=== PATIENT | female | born 1960 | race African-American/Black ===

== ENCOUNTER → 2017-10-29 | Day surgery (SDC) | payer BC ==
[2017-10-27 16:18] LABS: BASOPHILS % 0.2 % (0.0-1.0); EOSINOPHILS # (AUTO) 0.2 (0.0-0.4); EOSINOPHILS % 4.4 % (0.0-6.0); HEMOGLOBIN 12.6 g/dL (12.0-16.0); LYMPHOCYTES % 36.1 % (18.0-39.1); MEAN CORPUSCULAR HEMOGLOBIN 29.2 pg (28-32); MEAN CORPUSCULAR HGB CONC 34.1 g/dL (31-35); MEAN CORPUSCULAR VOLUME 85.8 fL (81-99); MONOCYTES # (AUTO) 0.4 (0.2-0.8); MONOCYTES % 6.9 % (4.4-11.3); NEUTROPHILS # (AUTO) 2.9 (2.1-6.9); NEUTROPHILS % 51.9 % (38.7-80.0); PLATELET COUNT 201 x10e3/uL (140-360); RED BLOOD COUNT 4.31 x10e6/uL (3.6-5.1); RED CELL DISTRIBUTION WIDTH 14.2 % (11.7-14.4)
[2017-10-27 16:26] LABS: INR 1.1; PROTHROMBIN TIME 13.4 seconds (11.9-14.5)
[2017-10-27 16:27] LABS: PARTIAL THROMBOPLASTIN TIME 37.7 seconds (23.8-35.5)
[2017-10-27 16:33] LABS: ALANINE AMINOTRANSFERASE 18 IU/L (0-55); ALBUMIN 3.8 g/dL (3.5-5.0); ALBUMIN/GLOBULIN RATIO 0.9 (0.8-2.0); ALKALINE PHOSPHATASE 69 IU/L (40-150); ANION GAP 14.2 mmol/L (8-16); BLOOD UREA NITROGEN 14 mg/dL (7-26); BUN/CREATININE RATIO 15 (6-25); CALCIUM 10.1 mg/dL (8.4-10.2); CARBON DIOXIDE 31 mmol/L (22-29); CHLORIDE 100 mmol/L (98-107); CREATININE, SERUM 0.96 mg/dL (0.57-1.11); EST GLOMERULAR FILTRATION RATE > 60 ML/MIN (60-); GLUCOSE 167 mg/dL (74-118); POTASSIUM 3.2 mmol/L (3.5-5.1); SODIUM 142 mmol/L (136-145)
[~2017-10-29] MED LIST: ALLOPURINOL100 MG PO; ATENOLOL25 MG PO; ATENOLOL50 MG; BACITRACIN 50,000 UNIT VIAL ONE; CLINDAMYCIN 600MG/D5W 50ML 50 ML IV ONE; FENTANYL CITRATE/PF 100MCG/2 ML INJ ONE; KETAMINE HCL INJ 50 MG/ML 10 ML VIAL ONE; LIDOCAINE HCL 2% LOCAL INJ 5 ML SDV VIAL INJ ONE; LISINOPRIL PO; LISINOPRIL2.5 MG PO; METFORMIN HCL500 MG PO; MIDAZOLAM HCL 2 MG/2 ML VIAL ONE; ONDANSETRON HCL INJ 2 MG/ML VIAL ONE; PROPOFOL IV EMULSION 10 MG/ML 20 ML VIAL ONE; ROCURONIUM BROMIDE 10 MG/ML 5ML VIAL ONE; SEVOFLURANE INHAL SOLN 250 ML PEN BTL ONE; ULORIC PO
[2017-10-29 10:23] LABS: ANION GAP 17.3 mmol/L (8-16); BLOOD UREA NITROGEN 15 mg/dL (7-26); BUN/CREATININE RATIO 17 (6-25); CALCIUM 9.8 mg/dL (8.4-10.2); CARBON DIOXIDE 27 mmol/L (22-29); CHLORIDE 101 mmol/L (98-107); CREATININE, SERUM 0.87 mg/dL (0.57-1.11); EST GLOMERULAR FILTRATION RATE > 60 ML/MIN (60-); GLUCOSE 137 mg/dL (74-118); POTASSIUM 3.3 mmol/L (3.5-5.1); SODIUM 142 mmol/L (136-145)
--- NOTE | 2017-11-08 12:11 | Operative Report ---
DATE OF PROCEDURE: October 29, 2017 PREOPERATIVE DIAGNOSES 1. History of breast cancer. 2. Acquired absence of bilateral breasts. 3. Exposed tissue route sales specialist on right breast. POSTOPERATIVE DIAGNOSES 1. History of breast cancer. 2. Acquired absence of bilateral breasts. 3. Exposed tissue route sales specialist on right breast. PROCEDURES PERFORMED 1. Exchange of bilateral tissue expanders with permanent silicone gel breast implants, [place] mammary gel smooth, round and ultra high profile, 700 mL. SN number on the right is [id number], and SN number of the left is [id number]. 2. Bilateral capsulotomies. 3. Revision of bilateral breast reconstruction. ANESTHESIA: General endotracheal. INDICATIONS FOR SURGERY: This is a 57-year-old female who a couple of years ago was diagnosed with breast cancer, and underwent bilateral breast mastectomies. The patient underwent last year bilateral breast reconstruction with tissue expanders and AlloDerm. The patient is currently presenting for exchange of bilateral tissue expanders with permanent silicone gel breast implants, bilateral capsulotomies, and revision of bilateral breast reconstruction. She has also presented today with exposed right breast tissue route sales specialist within the last few days. Risks, alternatives and possible complications of the above procedure were explained to the patient. These include, but are not limited to bleeding, infection, scarring, skin flap necrosis, capsule contracture, breast asymmetry, exposure, failure of silicone gel implants, wound dehiscence, unsatisfactory aesthetic result, and possible need for further surgery. The patient had an opportunity to ask questions, and have her questions answered and agreed to proceed with the proposed procedure. PROCEDURE IN DETAIL: The patient was marked in the preoperative holding area. She was then taken to the operating room and placed supine on the operating table. After adequate general anesthesia, the patient's bilateral breasts were prepped and draped in the usual surgical fashion. Attention was then turned first to the patient's right breast, which had the exposed tissue route sales specialist. The skin around the exposed tissue route sales specialist was excised and sent to pathology for permanent. The tissue route sales specialist was then deflated and removed. Culture was taken from the breast pocket and sent for aerobic and anaerobic culture. There did not appear to be infection. The breast pocket was then irrigated with pulse lavage with 3 L of normal saline with antibiotic solution to prevent any infection. It was also irrigated with Betadine. After irrigation of the breast pocket, thick capsule was noted into the right breast pocket. Extensive capsulotomy was performed medially and then superiorly, and a portion of the breast capsule was also removed with the help of the Bovie, Jordyn and Ricardo retractor, as well as headlight. The pocket was again irrigated with normal saline with antibiotic solution and checked for hemostasis. A sizer was then tried, and it appeared that the maximum implant that can be fit in the breast pocket is 700 mL. Revision of breast reconstruction was then performed by placing lateral capsulorrhaphy sutures, and the tissue route sales specialist had been displaced laterally. The capsulorrhaphy sutures were placed with interrupted 0 Ethibond suture. The breast pocket was again irrigated with normal saline with antibiotic solution. A ultra high profile [place] silicone gel implant, 700 mL, was placed in the breast pocket. The mastectomy incision was then closed with 2 layers of interrupted 3-0 Vicryl sutures and a running subcuticular 3-0 PDS suture. The instruments and the gloves were then changed. Attention was turned to the patient's left breast. An incision was made along the previous mastectomy incision with a #15 blade. Tissue was dissected down to breast capsule. The tissue route sales specialist was deflated and removed. The breast pocket was irrigated with normal saline with antibiotic solution. Extensive medial and superior capsulotomy was performed with the help of the Bovie, [place] and Ricardo retractors. Revision of breast reconstruction was performed by placing lateral capsulorrhaphy sutures with interrupted 0 Ethibond sutures. The pocket was then irrigated with normal saline with antibiotic solution, and checked for hemostasis. A 700 mL [place] mammary shaped ultra high profile silicone gel implant was placed in the breast pocket. The breast pocket was then closed with 2 layers of interrupted 3-0 Vicryl sutures and a running subcuticular 3-0 PDS suture. At the end of the case, all skin flaps appeared viable. Both breasts appeared to be symmetric. The incisions were covered with Xeroform, ABD pads, and the patient was wrapped in a large 6-inch Ludin wrap. She tolerated the procedure well. There were no immediate complications. The needle and instrument counts were correct at the end of the case. The excised capsule on the right side was sent to pathology for permanent. The patient was transferred extubated to the recovery room. Job#: [id number]
== END | disposition home or self-care (01) ==
LOC: OR 09:05
PROVIDERS: ATTEND Plastic Surgery
DX: T85.898A Other specified complication of other internal prosthetic devices, implants and grafts, initial encounter (principal); T81.89XA Other complications of procedures, not elsewhere classified, initial encounter; Z85.3 Personal history of malignant neoplasm of breast; Z90.13 Acquired absence of bilateral breasts and nipples; G47.33 Obstructive sleep apnea (adult) (pediatric); I10 Essential (primary) hypertension; E11.9 Type 2 diabetes mellitus without complications; M10.9 Gout, unspecified; L40.9 Psoriasis, unspecified; Z88.0 Allergy status to penicillin; Y83.4 Other reconstructive surgery as the cause of abnormal reaction of the patient, or of later complication, without mention of misadventure at the time of the procedure; Z01.810 Encounter for preprocedural cardiovascular examination; Z01.812 Encounter for preprocedural laboratory examination; Z79.84 Long term (current) use of oral hypoglycemic drugs
CPT/HCPCS: 19342; 36415 ×2; 80048; 80053; 82948; 85025; 85610; 85730; 87071; 87075; 87186; 87205; 88304; 88305; 93005; C1789; J2001; J2250; J2405

== ENCOUNTER → 2017-12-31 | Day surgery (SDC) | payer BC ==
[2017-12-29 16:43] LABS: BASOPHILS % 0.4 % (0.0-1.0); EOSINOPHILS # (AUTO) 0.1 (0.0-0.4); EOSINOPHILS % 2.5 % (0.0-6.0); HEMATOCRIT 36.1 % (34.2-44.1); HEMOGLOBIN 12.2 g/dL (12.0-16.0); LYMPHOCYTES % 38.9 % (18.0-39.1); MEAN CORPUSCULAR HEMOGLOBIN 29.2 pg (28-32); MEAN CORPUSCULAR HGB CONC 33.8 g/dL (31-35); MEAN CORPUSCULAR VOLUME 86.4 fL (81-99); MONOCYTES # (AUTO) 0.4 (0.2-0.8); MONOCYTES % 7.4 % (4.4-11.3); NEUTROPHILS # (AUTO) 2.6 (2.1-6.9); NEUTROPHILS % 50.4 % (38.7-80.0); PLATELET COUNT 192 x10e3/uL (140-360); RED BLOOD COUNT 4.18 x10e6/uL (3.6-5.1); RED CELL DISTRIBUTION WIDTH 14.5 % (11.7-14.4)
[2017-12-29 16:54] LABS: INR 0.9
[2017-12-29 16:55] LABS: PARTIAL THROMBOPLASTIN TIME 37.4 seconds (23.8-35.5)
[2017-12-29 17:06] LABS: ALANINE AMINOTRANSFERASE 37 IU/L (0-55); ALBUMIN 4.1 g/dL (3.5-5.0); ALBUMIN/GLOBULIN RATIO 1.1 (0.8-2.0); ALKALINE PHOSPHATASE 63 IU/L (40-150); ANION GAP 15.8 mmol/L (8-16); BLOOD UREA NITROGEN 15 mg/dL (7-26); BUN/CREATININE RATIO 16 (6-25); CALCIUM 9.9 mg/dL (8.4-10.2); CARBON DIOXIDE 29 mmol/L (22-29); CHLORIDE 101 mmol/L (98-107); CREATININE, SERUM 0.91 mg/dL (0.57-1.11); EST GLOMERULAR FILTRATION RATE > 60 ML/MIN (60-); GLUCOSE 166 mg/dL (74-118); SODIUM 143 mmol/L (136-145)
[2017-12-29 17:07] LABS: POTASSIUM 2.8 mmol/L (3.5-5.1)
[~2017-12-31] MED LIST changes: +ACETAMINOPHEN 1000 MG/100 ML 100 ML IV ONE; +ACETAMINOPHEN/CODEINE 300MG - 30MG TAB ONE; -BACITRACIN 50,000 UNIT VIAL ONE; +BUPIVACAINE 0.25% 30ML SDV INJ ONE; +CLINDAMYCIN 600MG / 50ML 50 ML IV ONE; -CLINDAMYCIN 600MG/D5W 50ML 50 ML IV ONE; +DEXAMETHASONE SOD PHOS INJ 4 MG/ML VIAL ONE; +EPHEDRINE SULFATE INJ 50 MG/10 ML SYR ONE; +EPINEPHRINE HCL INJ 1 MG/ML AMP ONE; -KETAMINE HCL INJ 50 MG/ML 10 ML VIAL ONE; +LIDOCAINE HCL 1% 30ML-PF VIAL ONE; +POTASSIUM CHLO10 ME1 PO
[2017-12-31 19:10] VITALS: BP 133/81
--- OUTSIDE RECORDS SUMMARY | 2018-01-12 10:35 | XMS REPORT | Continuity of Care Document ---
Author Author [facility] Interface Address Unknown Phone Unavailable Problems Problem Status Onset Date Classification Date Reported Comments Source R10.2 Active 09/04/2016 [facility] UNK Active 03/26/2016 [facility] POST SURGICAL Active 03/26/2016 [facility] CALCIFICATIONS Active 02/06/2016 [facility] DUCTAL CARCINOMA IN SITU Active 01/29/2016 [facility] DX: ABNORMAL MAMMOGRAM Active 01/28/2016 [facility] Z12.39 ENCOUNTER FOR OTHER SCREENING FOR Active 01/02/2016 [facility] Gouty arthritis of the ankle and/or foot<sup>3</sup> Active 10/17/2014 Problem 09/29/2017 Data migrated from [employer] on 11/01/14. [facility] BREAST MASS Active 07/14/2014 [facility] Breast lump<sup>1</sup> Active 07/13/2014 Problem 09/29/2017 Data migrated from [employer] on 10/04/14. [facility] History and physical examination, annual for health maintenance<sup>4</sup> Active 07/13/2014 Problem 09/29/2017 Data migrated from [employer] on 10/04/14. [facility] Screening for malignant neoplasm of colon<sup>11, 12</sup> Active 07/13/2014 Problem 09/29/2017 Data migrated from [employer] on 10/04/14. [facility] Screening for malignant neoplasm of colon<sup>10, 11</sup> Active 07/13/2014 Problem 03/01/2016 Data migrated from [employer] on 10/04/14. [facility] Hypercholesterolemia<sup>5</sup> Active 04/10/2014 Problem 09/29/2017 Data migrated from [employer] on 11/06/14. [facility] Type 2 diabetes mellitus<sup>14</sup> Active 04/10/2014 Problem 09/29/2017 Data migrated from [employer] on 11/06/14. [facility] Vitamin D deficiency<sup>15</sup> Active 04/10/2014 Problem 09/29/2017 Data migrated from [employer] on 11/06/14. [facility] Type 2 diabetes mellitus<sup>13</sup> Active 04/10/2014 Problem 03/01/2016 Data migrated from [employer] on 11/06/14. [facility] Vitamin D deficiency<sup>14</sup> Active 04/10/2014 Problem 03/01/2016 Data migrated from [employer] on 11/06/14. [facility] Edema of foot<sup>2</sup> Active 04/07/2014 Problem 09/29/2017 Data migrated from [employer] on 11/06/14. [facility] Obesity<sup>8, 9</sup> Active 04/07/2014 Problem 09/29/2017 Data migrated from [employer] on 10/04/14. [facility] Obstructive sleep apnea syndrome<sup>10</sup> Active 04/07/2014 Problem 09/29/2017 Data migrated from [employer] on 11/06/14. [facility] Systolic murmur<sup>13</sup> Active 04/07/2014 Problem 09/29/2017 Data migrated from [employer] on 11/06/14. [facility] Obesity<sup>7, 8</sup> Active 04/07/2014 Problem 03/01/2016 Data migrated from [employer] on 10/04/14. [facility] Obstructive sleep apnea syndrome<sup>9</sup> Active 04/07/2014 Problem 03/01/2016 Data migrated from [employer] on 11/06/14. [facility] Systolic murmur<sup>12</sup> Active 04/07/2014 Problem 03/01/2016 Data migrated from [employer] on 11/06/14. [facility] Morbid obesity<sup>7</sup> Active 09/06/2013 Problem 09/29/2017 Data migrated from [employer] on 11/06/14. [facility] Morbid obesity<sup>6</sup> Active 09/06/2013 Problem 03/01/2016 Data migrated from [employer] on 11/06/14. [facility] Diabetes Active Problem 09/29/2017 Medical Group,[facility] Dyspnea Resolved Problem 09/29/2017 [facility] Edema Resolved Problem 09/29/2017 [facility] Gout Active Problem 09/29/2017 [facility] HLD - Hyperlipidemia Active Problem 09/29/2017 Medical [facility] HTN (<span ID="[id number]">Confirmed</span>) Active Problem 09/29/2017 [facility] Hypokalemia Resolved Problem 09/29/2017 [facility] Breast cancer<sup>6</sup> Active Problem 09/29/2017 left Medical [facility] Apnea, sleep Active Problem 09/29/2017 [facility] Medications Medication Details Route Status Patient Instructions Ordering Provider Order Date Source allopurinol 100 mg oral tablet 100 mg=1 tab, PO, Daily, # 90 tab, 0 Refill(s), Pharmacy: [facility] Active 08/26/2017 Medical Group potassium chloride 20 mEq oral tablet, extended release 20 mEq=1 tab, PO, BID, # 6 tab, 0 Refill(s), Pharmacy: [facility] Active 08/26/2017 Medical [facility] Triamcinolone Acetonide 1 MG/ML Topical Cream 1 appl, TOP, TID, PRN Apply to affected area(s), apply for 2-4 wks, # 454 gm, 0 Refill(s), Pharmacy: [facility] Active 08/25/2017 Medical [facility] Rosuvastatin calcium 10 MG Oral Tablet [Crestor] 20 mg=2 tab, PO, Bedtime, # 90 tab, 1 Refill(s), Pharmacy: [facility] Active 08/25/2017 Medical Group Metformin hydrochloride 500 MG Oral Tablet 1,000 mg=2 tab, PO, BID, # 180 tab, 1 Refill(s), Pharmacy: [facility] Active 08/25/2017 [facility] lisinopril 5 mg oral tablet 5 mg=1 tab, PO, Daily, # 90 tab, 1 Refill(s), Pharmacy: [facility] Active 08/25/2017 Medical Group Atenolol 100 MG / Chlorthalidone 25 MG Oral Tablet 1 tab, PO, Daily, # 90 tab, 1 Refill(s), Pharmacy: [facility] Active 08/25/2017 [facility] Metformin hydrochloride 500 MG Oral Tablet 500 mg=1 tab, PO, BID-Meals, # 60 tab, 1 Refill(s), Pharmacy: [facility] No Longer Active 06/22/2017 [facility] Metformin hydrochloride 500 MG Oral Tablet 500 mg=1 tab, PO, BID, # 60 tab, 2 Refill(s), Pharmacy: [facility] Active 02/25/2017 [facility] Diclofenac Sodium 0.01 MG/MG Topical Gel [Voltaren] 2 gm=1 appl, TOP, QID, PRN for pain, # 100 gm, 0 Refill(s), Pharmacy: [facility] Active 02/10/2017 [facility] ciclopirox 80 MG/ML Topical Solution 1 appl, TOP, Daily, X 48 week, # 9.9 ml, 11 Refill(s), Pharmacy: [facility] Active 02/10/2017 [facility] lisinopril 5 mg oral tablet 5 mg=1 tab, PO, Daily, # 90 tab, 1 Refill(s), Pharmacy: [facility] Active 02/10/2017 [facility] febuxostat 40 MG Oral Tablet [Uloric] 40 mg=1 tab, PO, Daily, # 90 tab, 1 Refill(s), Pharmacy: [facility] Active 02/10/2017 [facility] Colchicine 0.6 MG Oral Tablet See Instructions, take 2 tablet at the first sign of a gout flare followed by 1 tab one hour later if still hurting. max 3 tab a day, # 30 tab, 2 Refill(s), Pharmacy: [facility] Active 02/10/2017 [facility] Atenolol 100 MG / Chlorthalidone 25 MG Oral Tablet 1 tab, PO, Daily, # 90 tab, 1 Refill(s), Pharmacy: [facility] Active 02/10/2017 [facility] heparin 7,500 unit, 1.5 mL, Route: SUB-Q, Drug form: INJ, Q8H, Dosing Weight 128.591, kg, Consider for obese patients, Start date: 04/21/16 23:00:00 [employer], Duration: 30 day, Stop date: 05/21/16 15:00:00 CSTNotes: porcine heparin No Longer Active 04/22/2016 [facility] Docusate Sodium 100 MG Oral Capsule 100 mg, 1 cap, Route: PO, Drug form: CAP, BID, Dosing Weight 128.591, kg, Start date: 04/21/16 17:00:00 [employer], Duration: 30 day, Stop date: 05/21/16 9:00:00 CSTNotes: (Same as: Colace) (Do Not Crush) No Longer Active 04/21/2016 [facility] ceFAZolin (SCIP) 2 gm, 100 mL, Route: IVPB, Drug form: INJ, ABXQ8H, Dosing Weight 128.591, kg, Start date: 04/21/16 17:00:00 [employer], Duration: 3 doses or times, Stop date: 04/22/16 9:00:00 CSTNotes: Same as: Ancef No Longer Active 04/21/2016 [facility] Ketorolac 15 mg, 1 mL, Route: IVP, Drug form: INJ, Q6H, Dosing Weight 128.591, kg, Start date: 04/21/16 12:00:00 [employer], Duration: 6 doses or times, Stop date: 04/22/16 18:00:00 CSTNotes: (Same as:Toradol) IV bolus must be given >15 seconds. Give IM administration slowly and deeply into the muscle. Not for use > 4 days. No Longer Active 04/21/2016 [facility] Ondansetron 4 mg, 2 mL, Route: IVP, Drug form: INJ, Q6H, Dosing Weight 128.591, kg, PRN Nausea & Vomiting, Start date: 04/21/16 11:22:00 [employer], Duration: 30 day, Stop date: 05/21/16 11:21:00 CSTNotes: (Same as: Zofran) MEDICATION WASTE Product Size: 4 mg Product Wasted: ___ mg No Longer Active 04/21/2016 [facility] Acetaminophen 650 mg, 2 tab, Route: PO, Drug form: TAB, Q4H, Dosing Weight 128.591, kg, PRN Pain 1-3/Temp > 100.4 F, Start date: 04/21/16 11:22:00 [employer], Duration: 30 day, Stop date: 05/21/16 11:21:00 CSTNotes: Do not exceed 4 gm/day. (Same as: Tylenol) No Longer Active 04/21/2016 [facility] Hydromorphone 0.3 mg, 0.3 mL, Route: IVP, Drug form: INJ, Q3H, Dosing Weight 128.591, kg, PRN Pain Score 4-6, Start date: 04/21/16 11:22:00 [employer], Duration: 30 day, Stop date: 05/21/16 11:21:00 [employer] No Longer Active 04/21/2016 [facility] Calcium Chloride 0.0014 MEQ/ML / Potassium Chloride 0.004 MEQ/ML / Sodium Chloride 0.103 MEQ/ML / Sodium Lactate 0.028 MEQ/ML Injectable Solution 1,000 mL, Rate: 125 ml/hr, Infuse over: 8 hr, Route: IV, Dosing Weight 128.591 kg, Total Volume: 1,000, Start date: 04/21/16 11:22:00 [employer], Duration: 30 day, Stop date: 05/21/16 11:21:00 [employer] No Longer Active 04/21/2016 [facility] ceFAZolin (ANES) Route: IV, Drug form: INJ, ONCE, Stop date: 04/21/16 11:13:00 [employer] Inactive 04/21/2016 [facility] Diphenhydramine 12.5 mg, Route: IVP, Drug form: INJ, Q6H, Dosing Weight 128.591, kg, PRN Itching, Start date: 04/21/16 11:13:00 [employer], Duration: 30 day, Stop date: 05/21/16 11:12:00 [employer] Inactive 04/21/2016 [facility] Naloxone 0.4 mg, Route: IVP, Q2MIN, Dosing Weight 128.591, kg, PRN Narcotic Reversal, Start date: 04/21/16 11:13:00 [employer], Duration: 8 doses or times, Stop date: Limited # of times Inactive 04/21/2016 [facility] Meperidine 12.5 mg, Route: IVP, Q30Min, Dosing Weight 128.591, kg, PRN Other -See Comment, For shivering, Start date: 04/21/16 11:13:00 [employer], Duration: 2 doses or times, Stop date: Limited # of times Inactive 04/21/2016 [facility] Oxycodone 10 mg, Route: PO, Drug form: TAB, Q4H, Dosing Weight 128.591, kg, PRN Pain Score 7-10, Start date: 04/21/16 11:13:00 [employer], Duration: 30 day, Stop date: 05/21/16 11:12:00 [employer] Inactive 04/21/2016 [facility] Hydromorphone 0.5 mg, Route: IVP, Q5Min, Dosing Weight 128.591, kg, PRN Pain Score 7-10, Start date: 04/21/16 11:13:00 [employer], Duration: 4 doses or times, Stop date: Limited # of times Inactive 04/21/2016 [facility] Fentanyl 25 microgram, Route: IVP, Q5Min, Dosing Weight 128.591, kg, PRN Pain Score 4-6, Priority: Routine, Start date: 04/21/16 11:13:00 [employer], Duration: 4 doses or times, Stop date: Limited # of times Inactive 04/21/2016 [facility] Flumazenil 0.2 mg, Route: IVP, PRN, Dosing Weight 128.591, kg, PRN Benzodiazepine Reversal, Initial dose, Start date: 04/21/16 11:13:00 [employer], Duration: 30 day, Stop date: 05/21/16 11:12:00 [employer] Inactive 04/21/2016 [facility] Morphine 4 mg, Route: IVP, Q5Min, Dosing Weight 128.591, kg, PRN Pain Score 7-10, Start date: 04/21/16 11:13:00 [employer], Duration: 3 doses or times, Stop date: Limited # of times Inactive 04/21/2016 [facility] 72 HR Scopolamine 0.0139 MG/HR Transdermal Patch 1 patch, Route: TOP, Drug Form: ERFILM, Dosing Weight 128.591, kg, ONCE, Apply behind ear. Avoid use in elderly., Start date: 04/21/16 11:13:00 [employer], Stop date: 04/21/16 11:13:00 [employer] Inactive 04/21/2016 [facility] Promethazine 6.25 mg, Route: IVPB, ONCE, Dosing Weight 128.591, kg, PRN Nausea & Vomiting, Start date: 04/21/16 11:13:00 [employer] Inactive 04/21/2016 [facility] Ondansetron 4 mg, Route: IVP, ONCE, Dosing Weight 128.591, kg, PRN Nausea & Vomiting, Start date: 04/21/16 11:13:00 [employer] Inactive 04/21/2016 [facility] Acetaminophen 1,000 mg, Route: IVPB, Drug form: INJ, ONCE, Dosing Weight 128.591, kg, PRN Pain Score 1-3, Start date: 04/21/16 11:13:00 [employer], Duration: 1 doses or times, Stop date: Limited # of times Inactive 04/21/2016 [facility] Ketorolac 30 mg, Route: IVP, ONCE, Dosing Weight 128.591, kg, Start date: 04/21/16 11:13:00 [employer], Duration: 1 doses or times, Stop date: 04/21/16 11:13:00 [employer] Inactive 04/21/2016 [facility] Calcium Chloride 0.0014 MEQ/ML / Potassium Chloride 0.004 MEQ/ML / Sodium Chloride 0.103 MEQ/ML / Sodium Lactate 0.028 MEQ/ML Injectable Solution 1,000 mL, Rate: 125 ml/hr, Infuse over: 8 hr, Route: IV, Dosing Weight 128.591 kg, Total Volume: 1,000, Start date: 04/21/16 11:13:00 [employer], Duration: 30 day, Stop date: 05/21/16 11:12:00 [employer] Inactive 04/21/2016 [facility] glycopyrrolate (ANES) Route: IV, Drug form: INJ, ONCE, Stop date: 04/21/16 11:13:00 [employer] Inactive 04/21/2016 [facility] neostigmine (ANES) Route: IV, Drug form: INJ, ONCE, Stop date: 04/21/16 11:13:00 [employer] Inactive 04/21/2016 [facility] ketOROLAC (ANES) IV, ONCE Inactive 04/21/2016 [facility] metoclopramide (ANES) Route: IV, Drug form: INJ, ONCE, Stop date: 04/21/16 10:20:00 [employer] Inactive 04/21/2016 [facility] famotidine (ANES) Route: IV, Drug form: INJ, ONCE, Stop date: 04/21/16 10:20:00 [employer] Inactive 04/21/2016 [facility] acetaminophen (ANES) Route: IV, Drug form: INJ, ONCE, Stop date: 04/21/16 10:11:00 [employer] Inactive 04/21/2016 [facility] ondansetron (ANES) Route: IV, Drug form: INJ, ONCE, Stop date: 04/21/16 10:10:00 [employer] Inactive 04/21/2016 [facility] rocuronium (ANES) Route: IV, Drug form: INJ, ONCE, Stop date: 04/21/16 9:56:00 [employer] Inactive 04/21/2016 [facility] propofol (ANES) Route: IV, Drug form: INJ, ONCE, Stop date: 04/21/16 9:56:00 [employer] Inactive 04/21/2016 [facility] fentaNYL (ANES) Route: IV, Drug form: INJ, ONCE, Stop date: 04/21/16 9:56:00 [employer] Inactive 04/21/2016 [facility] midazolam (ANES) Route: IV, Drug form: SOLN, ONCE, Stop date: 04/21/16 9:55:00 [employer] Inactive 04/21/2016 [facility] lidocaine (ANES) Route: IV, Drug form: INJ, ONCE, Stop date: 04/21/16 9:55:00 [employer] Inactive 04/21/2016 [facility] LR 1000 mL INJ (ANES) Route: IV, Total Volume: 1,000, Start date: 04/21/16 8:45:00 [employer], Stop date: 04/21/16 9:45:00 [employer] Inactive 04/21/2016 [facility] Exparel 20 mL, Route: InFILtration(local), Drug Form: INJ, Dosing Weight 128.591, kg, ONCE, For total mastectomy, Start date: 04/21/16 8:19:00 [employer], Stop date: 04/21/16 8:19:00 CSTNotes: (Same as: Exparel) NOT FOR IV use Postoperative analgesia: Infiltration (local): Dose is based on surgical site and volume required to cover the area (in general, the maximum total dose is 266 mg). Bunionectomy: 7 mL into the tissues surrounding the osteotomy and 1 mL into the subcutaneous tissue of the surgical site (total dose=8 mL [106 mg]) Hemorrhoidectomy: 30 mL (20 mL vial diluted with 10 mL NS) divided and administered as 6 injections of 5 mL each (total dose=30 mL [266 mg]) Inactive 04/21/2016 [facility] Insulin regular 3 unit, Route: IV, ONCE, Dosing Weight 128.591, kg, Start date: 04/21/16 7:22:00 [employer], Stop date: 04/21/16 7:22:00 [employer] Inactive 04/21/2016 [facility] Calcium Chloride 0.0014 MEQ/ML / Potassium Chloride 0.004 MEQ/ML / Sodium Chloride 0.103 MEQ/ML / Sodium Lactate 0.028 MEQ/ML Injectable Solution 1,000 mL, Rate: 25 ml/hr, Infuse over: 40 hr, Route: IV, Dosing Weight 128.591 kg, Total Volume: 1,000, Start date: 04/21/16 7:21:00 [employer], Duration: 30 day, Stop date: 05/21/16 7:20:00 [employer] Inactive 04/21/2016 [facility] Metformin hydrochloride 500 MG Oral Tablet 500 mg=1 tab, PO, BID-Meals, # 30 tab, 0 Refill(s) Active 04/15/2016 [facility] Cefazolin 2 gm, Route: IVPB, ONCE, Dosing Weight 132.273, kg, Start date: 04/15/16 17:02:00 [employer], Stop date: 04/15/16 17:02:00 [employer] No Longer Active 04/15/2016 [facility] Allergies, Adverse Reactions, Alerts Substance Category Reaction Severity Reaction type Status Date Reported Comments Source penicillins Assertion Drug allergy Active Medical Group Immunizations Immunization Date Given Site Status Last Updated Comments Source Results Order Name Results Value Reference Range Date Interpretation Comments Source CHEM PANEL Uric Acid 5.3 mg/dL 2.5 - 7.0 02/11/2017 Result Comment: Therapeutic target for gout patients: <6.0 mg/dL Lab test performed by: [email or web address] Lab [address] [place] [address] Sandy Farias MD Medical Group CHEM PANEL ALANINE AMINOTRANSFERASE 18 unit/L 6 - 29 02/11/2017 [facility] CHEM PANEL Alk Phos 66 unit/L 33 - 130 02/11/2017 [facility] CHEM PANEL ASPARTATE TRANSAMINASE 17 unit/L 10 - 35 02/11/2017 [facility] CHEM PANEL Bili Total 0.3 mg/dL 0.2 - 1.2 02/11/2017 [facility] CHEM PANEL A/G Ratio 1.4 (CALC) 1.0 - 2.5 02/11/2017 [facility] CHEM PANEL Globulin 2.9 g/dL 1.9 - 3.7 02/11/2017 [facility] CHEM PANEL Sodium Lvl 143 mMol/L 135 - 146 02/11/2017 [facility] CHEM PANEL B/C Ratio NOT APPLICABLE 6 - 22 02/11/2017 [facility] CHEM PANEL eGFR 98 mL/min/1.73m2 > OR=60 mL/min/1.73m2 02/11/2017 [facility] CHEM PANEL eGFR NON-AFR. [place] 85 mL/min/1.73m2 > OR=60 mL/min/1.73m2 02/11/2017 [facility] CHEM PANEL Chloride Lvl 101 mMol/L 98 - 110 02/11/2017 [facility] CHEM PANEL Potassium Lvl 3.8 mMol/L 3.5 - 5.3 02/11/2017 [facility] CHEM PANEL Calcium Lvl 9.4 mg/dL 8.6 - 10.4 02/11/2017 [facility] CHEM PANEL CO2 34 mMol/L 20 - 31 02/11/2017 [facility] CHEM PANEL Albumin Lvl 4.1 g/dL 3.6 - 5.1 02/11/2017 [facility] CHEM PANEL Total Protein 7.0 g/dL 6.1 - 8.1 02/11/2017 [facility] CHEM PANEL BUN 16 mg/dL 7 - 25 02/11/2017 [facility] CHEM PANEL Glucose Lvl 114 mg/dL 65 - 99 02/11/2017 Result Comment: Fasting reference interval For someone without known diabetes, a glucose value between 100 and 125 mg/dL is consistent with prediabetes and should be confirmed with a follow-up test. Lab test performed by: [email or web address] [[email or web address] Lab [address] [place] [address] Sandy Farias MD [facility] CHEM PANEL Creatinine Lvl 0.78 mg/dL 0.50 - 1.05 02/11/2017 Result Comment: For patients >49 years of age, the reference limit for Creatinine is approximately 13% higher for people identified as -[place]. [facility] HEMATOLOGY Monocytes 6.6 % 02/11/2017 [facility] HEMATOLOGY Basophils 0.3 % 02/11/2017 [facility] HEMATOLOGY Eosinophils 6.1 % 02/11/2017 [facility] HEMATOLOGY Eosinophils # 354 Cells/uL 15 - 500 02/11/2017 [facility] HEMATOLOGY Segs 56.3 % 02/11/2017 [facility] HEMATOLOGY Lymphocytes 30.7 % 02/11/2017 [facility] HEMATOLOGY Basophils # 17 Cells/uL 0 - 200 02/11/2017 [facility] HEMATOLOGY Monocytes # 383 Cells/uL 200 - 950 02/11/2017 [facility] HEMATOLOGY Lymphocytes # 1781 Cells/uL 850 - 3900 02/11/2017 [facility] HEMATOLOGY Hgb A1C 6.6 % <5.7 % 02/11/2017 Result Comment: For someone without known diabetes, a hemoglobin A1c value of 6.5% or greater indicates that they may have diabetes and this should be confirmed with a follow-up test. For someone with known diabetes, a value <7% indicates that their diabetes is well controlled and a value greater than or equal to 7% indicates suboptimal control. A1c targets should be individualized based on duration of diabetes, age, comorbid conditions, and other considerations. Currently, no consensus exists regarding use of hemoglobin A1c for diagnosis of diabetes for children. Lab test performed by: [facility] [address] [place] [address] Sandy Farias MD [facility] HEMATOLOGY RDW 12.7 % 11.0 - 15.0 02/11/2017 [facility] HEMATOLOGY Segs-Bands # 3265 Cells/uL 1500 - 7800 02/11/2017 [facility] HEMATOLOGY ALANINE AMINOTRANSFERASE 18 unit/L 6 - 29 02/11/2017 [facility] HEMATOLOGY Alk Phos 66 unit/L 33 - 130 02/11/2017 [facility] HEMATOLOGY ASPARTATE TRANSAMINASE 17 unit/L 10 - 35 02/11/2017 [facility] HEMATOLOGY Bili Total 0.3 mg/dL 0.2 - 1.2 02/11/2017 [facility] HEMATOLOGY Platelet 266 K/CMM 140 - 400 02/11/2017 [facility] HEMATOLOGY MPV 10.6 fL 7.5 - 12.5 02/11/2017 [facility] HEMATOLOGY RBC X 10x6 4.32 M/CMM 3.80 - 5.10 02/11/2017 [facility] HEMATOLOGY WBC X 10x3 5.8 K/CMM 3.8 - 10.8 02/11/2017 Result Comment: Lab test performed by: [facility] [address] [place] [address] Sandy Farias MD [facility] [facility] HEMATOLOGY U Microalb 0.3 mg/dL See Note: mg/dL 02/11/2017 Result Comment: Reference Range: Reference Range Not established Lab test performed by: [facility] [address] [place] [address] Sandy Farias MD [facility] HEMATOLOGY U Microalb Comment SEE COMMENT 02/11/2017 Result Comment: The ADA defines abnormalities in albumin excretion as follows: Category Result (mcg/mg creatinine) Normal <30 Microalbuminuria 30-299 Clinical albuminuria > TB=740 The ADA recommends that at least two of three specimens collected within a 3-6 month period be abnormal before considering a patient to be within a diagnostic category. [facility] HEMATOLOGY MCHC 33.2 g/dL 32.0 - 36.0 02/11/2017 [facility] HEMATOLOGY MCV 88.0 fL 80.0 - 100.0 02/11/2017 [facility] HEMATOLOGY MCH 29.2 pg 27.0 - 33.0 02/11/2017 [facility] HEMATOLOGY Hct 38.0 % 35.0 - 45.0 02/11/2017 [facility] HEMATOLOGY A/G Ratio 1.4 (CALC) 1.0 - 2.5 02/11/2017 [facility] HEMATOLOGY Globulin 2.9 g/dL 1.9 - 3.7 02/11/2017 [facility] HEMATOLOGY Hgb 12.6 g/dL 11.7 - 15.5 02/11/2017 [facility] HEMATOLOGY Sodium Lvl 143 mMol/L 135 - 146 02/11/2017 [facility] HEMATOLOGY B/C Ratio NOT APPLICABLE 6 - 02/11/2017 [facility] HEMATOLOGY eGFR 98 mL/min/1.73m2 > OR=60 mL/min/1.73m2 02/11/2017 [facility] HEMATOLOGY eGFR NON-AFR. VENEZUELAN 85 mL/min/1.73m2 > OR=60 mL/min/1.73m2 02/11/2017 [facility] HEMATOLOGY Chloride Lvl 101 mMol/L 98 - 110 02/11/2017 [facility] HEMATOLOGY Potassium Lvl 3.8 mMol/L 3.5 - 5.3 02/11/2017 [facility] HEMATOLOGY Calcium Lvl 9.4 mg/dL 8.6 - 10.4 02/11/2017 [facility] HEMATOLOGY CO2 34 mMol/L 20 - 31 02/11/2017 [facility] HEMATOLOGY Albumin Lvl 4.1 g/dL 3.6 - 5.1 02/11/2017 [facility] HEMATOLOGY Total Protein 7.0 g/dL 6.1 - 8.1 02/11/2017 [facility] HEMATOLOGY BUN 16 mg/dL 7 - 25 02/11/2017 [facility] HEMATOLOGY Glucose Lvl 114 mg/dL 65 - 99 02/11/2017 Result Comment: Fasting reference interval For someone without known diabetes, a glucose value between 100 and 125 mg/dL is consistent with prediabetes and should be confirmed with a follow-up test. Lab test performed by: [facility] [address] [place] [address] Sandy Farias MD [facility] HEMATOLOGY Uric Acid 5.3 mg/dL 2.5 - 7.0 02/11/2017 Result Comment: Therapeutic target for gout patients: <6.0 mg/dL Lab test performed by: [facility] [address] [place] [address] Sandy Farias MD [facility] HEMATOLOGY Creatinine Lvl 0.78 mg/dL 0.50 - 1.05 02/11/2017 Result Comment: For patients >49 years of age, the reference limit for Creatinine is approximately 13% higher for people identified as -Y[place]i. [facility] LIPIDS HDL 65 mg/dL >50 mg/dL 02/11/2017 [facility] LIPIDS Chol 269 mg/dL <200 mg/dL 02/11/2017 Result Comment: Lab test performed by: [facility] [address] [place] [address] Sandy Farias MD [facility] LIPIDS LDL (Calculated) 174 mg/dL 02/11/2017 Result Comment: Reference range: <100 Desirable range <100 mg/dL for patients with CHD or diabetes and <70 mg/dL for diabetic patients with known heart disease. LDL-C is now calculated using the Florence calculation, which is a validated novel method providing better accuracy than the Friedewald equation in the estimation of LDL-C. Rony DOMINGUEZ et al. IKER. 2013;310(40): 3643-0943 (http://education.Meshfire/faq/OAX975) [facility] LIPIDS Trig 156 mg/dL <150 mg/dL 02/11/2017 [facility] LIPIDS Non HDL Chol 204 mg/dL <130 mg/dL 02/11/2017 Result Comment: For patients with diabetes plus 1 major ASCVD risk factor, treating to a non-HDL-C goal of <100 mg/dL (LDL-C of <70 mg/dL) is considered a therapeutic option. [facility] LIPIDS CHD Risk 4.1 (CALC) <5.0 (CALC) 02/11/2017 [facility] SPECIAL CHEMISTRY Hgb A1C 6.6 % <5.7 % 02/11/2017 Result Comment: For someone without known diabetes, a hemoglobin A1c value of 6.5% or greater indicates that they may have diabetes and this should be confirmed with a follow-up test. For someone with known diabetes, a value <7% indicates that their diabetes is well controlled and a value greater than or equal to 7% indicates suboptimal control. A1c targets should be individualized based on duration of diabetes, age, comorbid conditions, and other considerations. Currently, no consensus exists regarding use of hemoglobin A1c for diagnosis of diabetes for children. Lab test performed by: [email or web address] [address] [place] [address] Sandy Farias MD [facility] URINE CHEM U Microalb 0.3 mg/dL See Note: mg/dL 02/11/2017 Result Comment: Reference Range: Reference Range Not established Lab test performed by: [email or web address] [address] [place] [address] Sandy Farias MD [facility] URINE CHEM U Microalb Comment SEE COMMENT 02/11/2017 Result Comment: The ADA defines abnormalities in albumin excretion as follows: Category Result (mcg/mg creatinine) Normal <30 Microalbuminuria 30-299 Clinical albuminuria > YF=568 The ADA recommends that at least two of three specimens collected within a 3-6 month period be abnormal before considering a patient to be within a diagnostic category. [facility] Pelvis Transvaginal US Pelvis Transvaginal US Clinical Indication: Patient is BRCA positive, has history of removal of uterus, cervix, and one of the ovaries in 1992. The ovary is unable to be identified on palpation; Comparison: None US PELVIS Technique: Grayscale, color and Doppler transabdominal and transvaginal imaging of the pelvis was performed with standard technique. The examination was performed by one french polisher and then repeated by a 2nd french polisher in an attempt to find the remaining ovary. FINDINGS: TRANSABDOMINAL PELVIC ULTRASOUND: UTERUS: Surgically absent OVARIES: Not seen OTHER FINDINGS: The transabdominal sonographic images show no free fluid in the pelvic cul-de-sac. IMPRESSION: 1. Limited assessment on the transabdominal pelvic ultrasound, related to bowel gas in the pelvis. This necessitated a pelvic transvaginal ultrasound. Recommend correlation with the transvaginal pelvic ultrasound report. TRANSVAGINAL PELVIC ULTRASOUND: UTERUS: Surgically absent OVARIES: Not seen. No adnexal masses. Limited examination due to bowel gas. MRI of the pelvis could provide a more sensitive evaluation if indicated. OTHER FINDINGS: The transvaginal sonographic images show no free fluid in the pelvic cul-de-sac. IMPRESSION: 1. Patient has had a hysterectomy and reportedly unilateral oophorectomy. Neither ovary is identified on this examination. SL: [id number] 09/08/2016 - - Read by: Fer Kearns MD Dictated Date/time: 09/09/16 07:30 Electronically Signed by: Fer Kearns MD 09/09/16 07:35 FINAL REPORT [facility] CHEM PANEL eGFR 83 mL/min/1.73m2 04/15/2016 Result Comment: The eGFR is calculated using the CKD-EPI formula. In most young, healthy individuals the eGFR will be >90 mL/min/1.73m2. The eGFR declines with age. An eGFR of 60-89 may be normal in some populations, particularly the elderly, for whom the CKD-EPI formula has not been extensively validated. Use of the eGFR is not recommended in the following populations: Individuals with unstable creatinine concentrations, including patients and those with serious co-morbid conditions. Patients with extremes in muscle mass or diet. The data above are obtained from the National Kidney Disease Education Program (NKDEP) which additionally recommends that when the eGFR is used in patients with extremes of body mass index for purposes of drug dosing, the eGFR should be multiplied by the estimated BMI. [facility] CHEM PANEL Calcium Lvl 9.7 mg/dL 8.5 - 10.5 04/15/2016 [facility] CHEM PANEL CO2 32 meq/L 24 - 32 04/15/2016 [facility] CHEM PANEL Potassium Lvl 3.1 meq/L 3.5 - 5.1 04/15/2016 [facility] CHEM PANEL Sodium Lvl 139 meq/L 135 - 145 04/15/2016 [facility] CHEM PANEL Creatinine Lvl 0.90 mg/dL 0.50 - 1.40 04/15/2016 [facility] CHEM PANEL Chloride Lvl 98 meq/L 95 - 109 04/15/2016 [facility] CHEM PANEL Glucose Lvl 97 mg/dL 70 - 99 04/15/2016 [facility] CHEM PANEL BUN 18 mg/dL 7 - 22 04/15/2016 [facility] CHEM PANEL AGAP 12.1 meq/L 10.0 - 20.0 04/15/2016 [facility] HEMATOLOGY Monocytes # 0.4 K/CMM 0.0 - 0.8 04/15/2016 [facility] HEMATOLOGY Eosinophils # 0.2 K/CMM 0.0 - 0.5 04/15/2016 [facility] HEMATOLOGY Lymphocytes # 2.3 K/CMM 1.0 - 5.5 04/15/2016 [facility] HEMATOLOGY Eosinophils 3.6 % 0.0 - 4.0 04/15/2016 [facility] HEMATOLOGY Basophils 0.3 % 0.0 - 1.0 04/15/2016 [facility] HEMATOLOGY Segs-Bands # 1.9 K/CMM 1.5 - 8.1 04/15/2016 [facility] HEMATOLOGY Monocytes 8.0 % 2.0 - 12.0 04/15/2016 [facility] HEMATOLOGY Segs 39.8 % 45.0 - 75.0 04/15/2016 [facility] HEMATOLOGY Lymphocytes 48.3 % 20.0 - 40.0 04/15/2016 [facility] HEMATOLOGY WBC 4.7 K/CMM 3.7 - 10.4 04/15/2016 [facility] HEMATOLOGY RBC 4.47 M/CMM 4.20 - 5.40 04/15/2016 [facility] HEMATOLOGY Hgb 13.4 g/dL 12.0 - 16.0 04/15/2016 [facility] HEMATOLOGY RDW 14.5 % 11.5 - 14.5 04/15/2016 [facility] HEMATOLOGY Platelet 194 K/CMM 133 - 450 04/15/2016 [facility] HEMATOLOGY MPV 9.3 fL 7.4 - 10.4 04/15/2016 [facility] HEMATOLOGY MCHC 34.0 g/dL 32.0 - 36.0 04/15/2016 [facility] HEMATOLOGY MCH 30.0 pg 27.0 - 31.0 04/15/2016 [facility] HEMATOLOGY Hct 39.4 % 36.0 - 48.0 04/15/2016 [facility] HEMATOLOGY MCV 88.2 fL 80.0 - 98.0 04/15/2016 [facility] Stereo Breast BX Uni /Clip Primary SD MA Stereo Breast BX Uni /Clip Primary SD MA - STEREO BREAST BX UNI /CLIP PRIMARY SD MA/L STEREOTACTIC GUIDED BIOPSY LEFT BREAST WITH MARKING DEVICE INSERTED AND POST DIGITAL MAMMOGRAPHIC IMAGING AND RADIOGRAPHIC SPECIMEN IMAGIN02/14/2016 CLINICAL: Indeterminate left breast calcifications. PATIENT CONSENT: Oral and written informed consent was obtained. Risks, benefits, and alternatives were discussed with the patient. Risks include but are not limited to pain, infection, bleeding, incomplete procedure, repeat procedure, pneumothorax, damage to surrounding tissues, and allergic reaction. The patient understands the plan and wishes to proceed. A time out was performed immediately prior to the procedure to confirm the patient's identity (name/date of ) and correct procedure site. Correlation is made to exams dated: 02/06/2016 mammogram, 01/25/2016 mammogram, 07/20/2014 ultrasound, 07/20/2014 mammogram - [facility] and 07/30/2010 mammogram - [facility]. A stereotactic guided biopsy was performed for the concerning 3 cm area of grouped and clustered punctate calcifications located in the left breast central to the nipple posterior depth. This was described on the previous mammography report. The skin was prepped in the usual manner. 10 ccs of 1% lidocaine was administered during the procedure. A skin garry was made in the breast. The abnormality was approached from the caudocranial aspect using an upright digital mammography unit. A 9 gauge biopsy needle was placed adjacent to the abnormality under computer guidance and confirmatory stereotactic mammography images were obtained to document needle placement. Once the needle was documented to be in the correct location, multiple specimens were obtained using the vacuum assisted Suros Eviva device. A SecurMark tricia shaped biopsy clip was inserted into the biopsy cavity. A skin adhesive and a skin closure strip were applied to the access site. Post procedure digital mammographic imaging demo nstrates the clip at the targeted area and partial removal of the calcifications. The specimens were sent to the laboratory for pathological analysis. IMPRESSION: STEREOTACTIC GUIDED BIOPSY MALIGNANT Stereotactic guided biopsy of the 3 cm area of grouped and clustered punctate calcifications in the left breast central to the nipple posterior depth was successful with no apparent post procedure complications. The imaged specimens includes the calcifications. 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 Estrogen receptor positive and progesterone receptor negative by paraffin section immunohistochemistry". Pathology results are concordant with imaging findings. A surgical consult, a surgical excision, a radiation oncology consultation and a medical oncology consultation are recommended. A phone call was made to the physician's nurse Annette of the above results/recommendations at 0955 hrs 02/25/16. Quang em/:02/25/2016 10:18:11 Pumper Gauger Apprentice: Eneida Nash, [facility] This exam was dictated and interpreted by [id number] for [facility]. 02/14/2016 - - Read by: Quang Luna MD Dictated Date/time: 02/25/16 10:18 Electronically Signed by: Quang Luna MD 02/25/16 10:18 FINAL REPORT [facility] Digital Mammo DX Uni MA Digital Mammo DX Uni MA - DIGITAL MAMMO DX UNI MA/L UNILATERAL LEFT DIGITAL DIAGNOSTIC MAMMOGRAM WITH CAD: 02/06/2016 CLINICAL: Mammographic Abnormality. Current study was evaluated with a Computer Aided Detection (CAD) system. Comparison is made to exams dated: 01/25/2016 mammogram, 07/20/2014 mammogram - [facility] and 07/30/2010 mammogram - [facility]. There are scattered fibroglandular densities in the left breast. There are clustered calcifications in the left breast central to the nipple posterior depth. These are more prominent and increased in number of calcifications and correlates with the prior exam. No other significant masses or calcifications are seen in the breast. IMPRESSION: SUSPICIOUS OF MALIGNANCY The clustered calcifications in the left breast are at an intermediate suspicion for malignancy. A stereotactic biopsy is recommended. A phone call was made to the physician's office and the results were reviewed with the patient. SUMMARY: The patient scheduled her procedure prior to leaving the [facility]. Critical findings were called to the physician's nurse Annette at 1330 hours on the day of the exam. An order for this procedure will need to be provided by the referring physician. Quang em/:02/06/2016 13:33:42 Pumper Gauger Apprentice: Liliya Simms [facility] This exam was dictated and interpreted by [id number] for [facility]. letter sent: Biopsy Mammogram BI-RADS: 4b Suspicious abnormality - intermediate suspicion of malignancy 02/06/2016 - - Read by: Quang Luna MD Dictated Date/time: 02/06/16 13:33 Electronically Signed by: Quang Luna MD 02/06/16 13:33 FINAL REPORT [facility] Digital Mammo Screening Kervin MA Digital Mammo Screening Kervin MA - DIGITAL MAMMO SCREENING KERVIN MA BILATERAL DIGITAL SCREENING MAMMOGRAM WITH CAD: 01/25/2016 CLINICAL: Routine. Current study was evaluated with a Computer Aided Detection (CAD) system. Comparison is made with mammogram(s) dated 06/05/04 - 07/20/14. There are scattered fibroglandular densities in both breasts. There are clustered calcifications in the left breast central to the nipple posterior depth. These are more prominent and increased in number of calcifications. No other significant masses, calcifications, or other findings are seen in either breast. IMPRESSION: INCOMPLETE: NEEDS ADDITIONAL IMAGING EVALUATION The clustered calcifications in the left breast are indeterminate. Left diagnostic mammogram with possible ultrasound is recommended (magnification views and lateral view). These were previously evaluated on a June 2014 mammogram and it was recommended for the patient to return for a 6 month follow up exam. Quang prestont/:01/25/2016 17:17:15 Pumper Gauger Apprentice: Isatu Foley, [facility] This exam was dictated and interpreted by [id number] for [facility]. letter sent: Additional Imaging Mammogram BI-RADS: 0 Indeterminate 01/25/2016 - - Read by: Quang Luna MD Dictated Date/time: 01/25/16 17:17 Electronically Signed by: Quang Luna MD 01/25/16 17:17 FINAL REPORT [facility] Breast Complete Kervin US Breast Complete Kervin US - BREAST COMPLETE KERVIN US ULTRASOUND OF BOTH BREASTS AND BOTH AXILLA: 07/20/2014 CLINICAL: Dr. Kiley Richards. Comparison is made to exam dated: 07/20/2014 mammogram - [facility]. Ultrasound was performed over all four quadrants, retroareolar region, and axilla. Color flow and real-time ultrasound of both breasts and both axilla were performed. Alejandre scale images of the real-time examination were reviewed. There is a benign intramammary node left breast at 2 o'clock that correlates with mammography. No abnormalities were seen sonographically in either breast or either axilla. No sonographic correlates are identified for the densities seen in either breast by mammography. The mammographic findings likely represent normal breast parenchyma. There is no suspicious finding at the patient's physician's palpable area of concern at the left breast 5-6 o'clock axis along the inframammary fold. IMPRESSION: PROBABLY BENIGN - FOLLOW-UP RECOMMENDED There are no mammographic or sonographic abnormalities seen in the right breast to correspond with the palpable abnormalities at 5 and 6 o'clock, however clinical correlation and clinical followup are recommended. A follow-up mammogram in 6 months is recommended to demonstrate stability of left breast calcifications as recommended in prior report. Trev Schwartz M.D. ap/:07/20/2014 13:18:42 Pumper Gauger Apprentice: Tee Rangel, [facility] This exam was dictated and interpreted by [id number] for [facility]. letter sent: Followup Ultrasound BI-RADS: 3 Probably benign 07/20/2014 - - Read by: Trev Schwartz MD Dictated Date/time: 07/20/14 13:18 Electronically Signed by: Trev Schwartz MD 07/20/14 13:18 FINAL REPORT [facility] Digital Mammo DX Kervin MA Digital Mammo DX Kervin MA - DIGITAL MAMMO DX KERVIN MA BILATERAL DIGITAL DIAGNOSTIC MAMMOGRAM WITH CAD: 07/20/2014 CLINICAL: Breast Lump. Current study was evaluated with a Computer Aided Detection (CAD) system. The patient has comparison exams at an outside facility but did not bring them with her. She is requesting that they be obtained for her as she has signed a release. There are scattered fibroglandular densities in both breasts. The patient's physician palpates a lump in the inferior right breast. The patient could not pinpoint any lump. Initial views demonstrated densities superiorly on the right and laterally on the left. These both efface with spot compression imaging and have the appearance of superimposed fibroglandular tissue. However, ultrasound is recommended for additional assessment. There are calcifications in the lateral inferior left breast which on magnification views are punctate and loosely grouped and demonstrate a probably benign appearance. A 6 month follow up is recommended unless prior films become available and show no significant interval change. No significant masses, calcifications, or other findings are seen in either breast. IMPRESSION: INCOMPLETE: NEEDS ADDITIONAL IMAGING EVALUATION Bilateral breast ultrasound is needed for assessment of the palpable abnormality as well as for bilateral mammographic densities. Left breast calcifications are probably benign. A 6 month follow up mammogram with magnification views is recommended unless prior films become available and show no significant interval change. 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 This aids in establishing benignity. The patient should make additional efforts to locate her prior exams. An addendum will be made if additional films are provided, and the patient may need to return for additional imaging. SUMMARY: Ultrasound will be performed at this time; please see dedicated separate report. Trev Schwartz M.D. ap/:07/20/2014 13:14:50 Pumper Gauger Apprentice: Laura Jay, [facility] This exam was dictated and interpreted by [id number] for [facility]. Mammogram BI-RADS: 0 Indeterminate 07/20/2014 - - Read by: Trev Schwartz MD Dictated Date/time: 07/20/14 13:14 Electronically Signed by: Trev Schwartz MD 07/20/14 13:14 FINAL REPORT [facility] Vital Signs Vital Sign Value Date Comments Source Systolic (mm Hg) 127 08/25/2017 [facility] Diastolic (mm Hg) 77 08/25/2017 [facility] Heart Rate 65 08/25/2017 [facility] Temperature Oral (F) 98.0 F 08/25/2017 [facility] Weight 126.051 08/25/2017 [facility] Height 170.18 cm 08/25/2017 [facility] BMI Calculated 43.52 08/25/2017 [facility] Systolic (mm Hg) 145 08/25/2017 [facility] Diastolic (mm Hg) 75 08/25/2017 [facility] Weight 123.182 02/10/2017 [facility] BMI Calculated 43.83 02/10/2017 [facility] Height 167.64 cm 02/10/2017 [facility] Heart Rate 61 02/10/2017 [facility] Temperature Oral (F) 98.5 F 02/10/2017 [facility] Respitory Rate 18 02/10/2017 [facility] Systolic (mm Hg) 116 02/10/2017 [facility] Diastolic (mm Hg) 73 02/10/2017 [facility] Temperature Oral (F) 98.2 F 04/22/2016 [facility] Heart Rate 55 04/22/2016 [facility] Respitory Rate 18 04/22/2016 [facility] Systolic (mm Hg) 108 04/22/2016 [facility] Diastolic (mm Hg) 68 04/22/2016 [facility] Systolic (mm Hg) 123 04/22/2016 [facility] Diastolic (mm Hg) 78 04/22/2016 [facility] Temperature Oral (F) 97.6 F 04/22/2016 [facility] Heart Rate 51 04/22/2016 [facility] Respitory Rate 18 04/22/2016 [facility] Respitory Rate 18 04/22/2016 [facility] Heart Rate 60 04/22/2016 [facility] Temperature Oral (F) 98.1 F 04/22/2016 [facility] Systolic (mm Hg) 127 04/22/2016 [facility] Diastolic (mm Hg) 78 04/22/2016 [facility] Weight 128.591 04/15/2016 [facility] BMI Calculated 45.76 04/15/2016 [facility] Height 167.64 cm 04/15/2016 [facility] Encounters Location Location Details Encounter Type Encounter Number Reason For Visit Attending Provider ADM Date DC Date Status Source Outpatient [id number] MANDI CAOR 10/17/2014 Active [facility] Outpatient [id number] MANDI CARO 04/05/2015 Active [facility] Outpatient [id number] MANDI CARO 07/31/2015 Active [facility] Outpatient [id number] MANDI CARO 01/01/2016 [facility] Outpatient [id number] Mandi Caro 01/25/2016 01/26/2016 [facility] Outpatient [id number] Mandi Caro 02/06/2016 02/07/2016 [facility] Outpatient [id number] Mandi Caro 02/14/2016 02/15/2016 [facility] Outpatient [id number] Mandi Caro 02/27/2016 02/28/2016 [facility] Outpatient [id number] ELIZABETH MAYES 03/06/2016 Active [facility] Outpatient [id number] ELIZABETH MAYES 03/26/2016 Active [facility] Outpatient [id number] ELIZABETH MAYES 04/21/2016 Active [facility] Outpatient [id number] CARYN NAVARRO 04/21/2016 Active [facility] Observation [id number] Elizabeth Mayes 04/21/2016 04/22/2016 [facility] Outpatient [id number] ELIZABETH MAYES 04/28/2016 [facility] [id number] ELIZABETH MAYES 04/30/2016 Active [facility] Outpatient [id number] ELIZABETH MAYES 05/06/2016 [facility] [id number] ELIZABETH MAYES 05/14/2016 [facility] [id number] ELIZABETH MAYES 05/20/2016 Active [facility] Outpatient [id number] MANDI CARO 05/23/2016 [facility] [id number] ELIZABETH MAYES 05/27/2016 Active [facility] Outpatient [id number] ELIZABETH MAYES 06/17/2016 Active [facility] Outpatient [id number] MANDI CARO 08/21/2016 Active [facility] Outpatient [id number] Zelda Woodward 09/08/2016 09/09/2016 [facility] Outpatient [id number] MANDI CARO 02/10/2017 Active [facility] [place] Outpatient [id number] Mandi Caro 02/10/2017 02/11/2017 [facility] [place] Phone Message [id number] 02/11/2017 02/13/2017 [facility] [place] Phone Message [id number] 02/25/2017 02/27/2017 [facility] [place] Phone Message [id number] 06/22/2017 06/24/2017 [facility] [place] Phone Message [id number] 08/21/2017 08/23/2017 [facility] Outpatient [id number] MANDI CARO 08/25/2017 Active [facility] Outpatient [id number] MANDI CARO 08/25/2017 Active [facility] [place] Ambulatory Pre-Reg [id number] Mandi Caro 08/25/2017 08/25/2017 [facility] [place] Outpatient [id number] Mandi Caro 08/25/2017 08/26/2017 [facility] [place] Phone Message [id number] 08/26/2017 08/28/2017 [facility] Outpatient [id number] NURSE VISIT 08/28/2017 Active [facility] Outpatient [id number] Mandi Caro 08/28/2017 08/29/2017 [facility] Outpatient [id number] MANDI CARO 01/06/2018 Active [facility] Outpatient [id number] MANDI CARO 02/26/2018 Active [facility] Procedures Procedure Code Date Perfomer Comments Source Collection of venous blood by venipuncture 01838 08/28/2017 [facility] Collection of venous blood by venipuncture 20962 08/25/2017 [facility] Breast reconstruction [id number] 02/03/2017 [facility] Mastectomy, simple, complete 83867 04/21/2016 [facility] Biopsy or excision of lymph node(s); open, deep axillary node(s) 15055 04/21/2016 [facility] Mastectomy [id number] 04/21/2016 [facility] Mastectomy [id number] 04/21/2016 [facility] Colonoscopy<sup>1</sup> [id number] 08/31/2015 [facility] Mastectomy right [id number] 04/21/2015 [facility] Mastectomy right [id number] 04/21/2015 [facility] Colonoscopy<sup>1</sup> [id number] 03/30/2015 [facility] Hysterectomy [id number] [facility] Hysterectomy [id number] [facility]
--- NOTE | 2018-01-21 00:03 | Operative Report ---
DATE OF PROCEDURE: December 31, 2017 PREOPERATIVE DIAGNOSES: 1. History of breast cancer. 2. Acquired absence of bilateral breasts. POSTOPERATIVE DIAGNOSES: 1. History of breast cancer. 2. Acquired absence of bilateral breasts. PROCEDURES PERFORMED: 1. Bilateral nipple reconstruction. 2. Revision of bilateral breast reconstruction. 3. Bilateral breast reconstruction with fat transfer to bilateral breasts, 170 mL of fat transferred to the left breast and 70 mL of fat transferred to the right breast. ANESTHESIA: General endotracheal. INDICATION FOR SURGERY: This is a 57-year-old female who approximately 2 years ago underwent bilateral mastectomy for breast cancer. Patient underwent last year bilateral breast reconstruction with tissue expanders and AlloDerm and subsequently had tissue expanders exchanged with permanent silicone gel breast implants. Patient is currently presenting for bilateral nipple reconstruction, revision of bilateral breasts reconstruction, and fat transfer to bilateral breasts. Risks, alternatives, and possible complications of the above procedure were explained to the patient. These include, but are not limited to bleeding, infection, scarring, nipple or skin flap necrosis, breast asymmetry, wound dehiscence, failure of fat transfer, firmness or lumpiness, nipple asymmetry, skin irregularities, excessive skin fat necrosis, exposure or failure of silicone gel implants, pulmonary embolism, deep venous thrombosis, unsatisfactory esthetic result, and possible need for further surgery. The patient had an opportunity to ask questions and have her questions answered and agreed to proceed with the proposed procedure. PROCEDURE IN DETAIL: The patient was marked in the preoperative holding area. The location of the new nipples had been previously agreed upon during the preoperative visit. The patient was then taken to the operating room and placed supine on the operating table. After adequate general anesthesia, the patient's bilateral breasts and abdomen were prepped and draped in the usual surgical fashion. Attention was then turned first to the patient's bilateral breasts. The locations of the bilateral nipples to be reconstructed were checked for symmetry. The nipples were marked for reconstruction using the fishtail flap. The length of the flap was approximately 2.5 cm and the width approximately 1.5 cm. The flaps were carefully elevated with the help of #15 blade ensuring that their blood supply remains intact. The donor site was then closed with interrupted 3-0 Vicryl sutures. The flaps were wrapped around each other and sutured to each other with interrupted 5-0 Prolene sutures. The donor site was closed with additional layer of running subcuticular 5-0 Prolene suture. Similar procedure was performed on the opposite nipple. After completion of the bilateral nipple reconstruction, bilateral breast reconstruction with fat transfer to bilateral breasts was performed. Fat was harvested from the patient's abdomen for the fat transfer. Tumescent fluid was injected in the patient's abdomen through 2 small incisions in the suprapubic area. Approximately 2000 mL of tumescent fluid were injected in the patient's abdomen. After adequate time was given for the tumescent to act, suction-assisted lipectomy was undertaken with #3 mm cannula. 1400 mL of aspirate were removed from the patient's abdomen. The donor sites were closed with a single stitch of 5-0 chromic. The aspirated fat was then purified using the [employer] fat purification system. The aspirated fat was then injected in the superior and medial portions of the patient's bilateral breasts with a blunt-tip cannula. Approximately 170 mL of fat were transferred to the patient's left breast and 70 mL of fat were transferred to her right breast. After completion of the bilateral breast reconstruction with fat transfer to bilateral breasts, revision of bilateral breasts reconstruction was performed by excising dog ears on the patient's bilateral breasts both medially and laterally along the mastectomy incision. The dog ears had been previously marked and then excised with the help of #15 blade. Hemostasis was achieved with the Bovie. The incision was then closed with interrupted 3-0 Vicryl sutures and a running subcuticular 3-0 PDS suture. Similar procedure was performed on the opposite breast. After completion of the revision of the bilateral breasts reconstruction, the patient's newly reconstructed bilateral nipples appeared viable. They were covered with Xeroform and 4 x 4's with cutout donut hole in order to stand the newly reconstructed nipple. The patient's donor sites for the fat transfer were covered with ABD pads, and an abdominal binder was placed on the patient. She tolerated the procedure well. There were no immediate complications. The needle and instrument count was correct at the end of the case and she was transferred extubated to the recovery room. Job#: [id number]
== END | disposition home or self-care (01) ==
LOC: OR 09:10
PROVIDERS: ATTEND Plastic Surgery
DX: Z42.1 Encounter for breast reconstruction following mastectomy (principal); Z85.3 Personal history of malignant neoplasm of breast; Z90.13 Acquired absence of bilateral breasts and nipples; I10 Essential (primary) hypertension; G47.33 Obstructive sleep apnea (adult) (pediatric); E11.9 Type 2 diabetes mellitus without complications; L40.9 Psoriasis, unspecified; Z88.0 Allergy status to penicillin; Z01.812 Encounter for preprocedural laboratory examination; Z79.84 Long term (current) use of oral hypoglycemic drugs
CPT/HCPCS: 19350; 19380; 36415 ×2; 80053; 82948; 84132; 85025; 85610; 85730; J0171; J1100; J2001 ×2; J2250; J2405